=== PATIENT | female | born 1945 | race Caucasian/White ===

== ENCOUNTER 2016-11-20 11:37 | Day surgery (SDC) | payer MEDICARE, OTHER ==
[~2016-11-20] VITALS: Ht 160 cm; Wt 62.0 kg
[~2016-11-20 11:37] MED LIST: FEXO180T85 PO; FLUO20TA28 PO; LEVO75TA4 PO; LORA0.5T PO; MULT1CAP33 PO; Sodium Chloride LOK Flush 10 mL Syringe IV PRN; fentaNYL-PF 50 mCg/mL 2 mL Inj IVPUSH PRN
[2016-11-20] MEDS ORDERED: CALC600T12 PO (11:55)
[2016-11-20] MEDS ORDERED: CHOL200047 PO (11:55)
[2016-11-20 12:02] VITALS: BP 134/76; PULSE 85; RESP 16; O2SAT 97
[2016-11-20] MEDS: 0.9% Sodium Chloride 1,000 ML IV PRN ×2 (12:02→12:09)
[2016-11-20 13:01] VITALS: BP 129/70; PULSE 68; RESP 12; O2SAT 90
[2016-11-20 13:08] VITALS: BP 118/65; PULSE 63; RESP 14; O2SAT 92
[2016-11-20 13:18] VITALS: BP 110/60; PULSE 60; RESP 14; O2SAT 96
--- NOTE | 2016-11-20 23:32 | ENDO ---
[address] [address] ENDOSCOPY PROCEDURE PATIENT: FRANCISCO CHEN : 1945 MR#: [id number] ADMIT: 11/20/2016 JOB ID: [id number] DATE OF PROCEDURE: 11/20/2016 PRIMARY PROVIDER: Miguel Doe MD. PROCEDURE: A colonoscopy with cold forceps polypectomy. INDICATIONS: A 71-year-old female who reports for colon cancer screening. EQUIPMENT: [employer]. SEDATION: 1. Versed 6 mg. 2. Fentanyl 150 mcg. COMPLICATIONS: None identified. BOWEL PREPARATION: Fair, adequate exam. PROCEDURE INFORMATION: After the risks and benefits were explained, written and verbal informed consent was obtained. The patient was brought into the endoscopy suite and placed into the left lateral decubitus position. Sedation was achieved as above. A digital rectal examination was accomplished. The scope was introduced into the rectum and advanced to the cecum as identified by the appendiceal orifice and ileocecal valve. The scope was slowly withdrawn to carefully examine the mucosa for any defects or lesions. Multiple direct views were made through the dentate line for exclusion of pathology. The colon was decompressed. The scope was removed from the patient who tolerated the procedure well. FINDINGS: The patient had an exceedingly difficult navigation through the sigmoid colon. There was a diminutive polyp perhaps 4-5 mm removed with cold forceps in the sigmoid. There were some shallow diverticula in this region. Otherwise, no mucosal pathology appreciated throughout. ENDOSCOPIC DIAGNOSES: 1. Tortuous left colon. 2. Diverticulosis. 3. Diminutive colon polyp. RECOMMENDATIONS: 1. Await histopathology. 2. If adenoma, repeat colonoscopy in five years. Consider a 1 hour slot. 3. If this polyp is a hyperplastic polyp then repeat colon cancer screening in 10 years' time with either conventional colonoscopy or alternative such as virtual concerning the degree of difficulty today.
--- NOTE | 2016-11-21 10:45 | PATH ---
SURGICAL PATHOLOGY Attending Physician:Shorty Sotomayor CASE STATUS: Signed Out PATIENT NAME: FRANCISCO CHEN PID: [id number] : 1945 DATE COLLECTED:11/20/2016 20:21 SPECIMEN: Colon, Biopsy CLINICAL HISTORY: 1). SIGMOID COLON POLYP FINAL DIAGNOSIS: Sigmoid Colon Polyp: Minute tissue fragment consistent with tubular adenoma. ICD10: D12.6 GROSS DESCRIPTION: The specimen is received in one formalin filled container labeled with the patient's name, sublabeled "sigmoid colon polyp" and consists of a 0.1 x 0.1 x 0.1 CM portion of tissue and probable debris. The specimen is entirely submitted in one cassette. 11/20/2016 [facility] ICD-9 CODES: CPT CODES: 1: 65736 Electronically Signed Out George Cailx MD [facility] [place] [address] Technical component performed at [facility], [address] [place] [address] Ave[address], [place], [address]
== END 2016-11-20 23:59 | disposition home or self-care (01) ==
LOC: END 11:37
PROVIDERS: ATTEND Internal Medicine Gastroenterology
DX: Z12.11 Encounter for screening for malignant neoplasm of colon (principal); D12.5 Benign neoplasm of sigmoid colon; K57.30 Diverticulosis of large intestine without perforation or abscess without bleeding; E03.9 Hypothyroidism, unspecified; E78.5 Hyperlipidemia, unspecified; B18.2 Chronic viral hepatitis C; F33.1 Major depressive disorder, recurrent, moderate; M15.9 Polyosteoarthritis, unspecified; M85.80 Other specified disorders of bone density and structure, unspecified site; Z85.3 Personal history of malignant neoplasm of breast
CPT/HCPCS: 45380; 99153; G0500; J7030